=== PATIENT | male | born 1935 | race Caucasian/White ===

== ENCOUNTER 2021-04-12 20:20 | Emergency (ER) | payer OTHER, SELFPAY ==
--- NOTE | ~2021-04-12 | CT_ITS ---
EXAMINATION: CT ABDOMEN AND PELVIS WITHOUT CONTRAST CLINICAL INFORMATION: Intermittent epigastric pain COMPARISON: None TECHNIQUE: Multidetector volumetric imaging was performed from the superior aspect of the liver through the pubic symphysis. Sagittal and coronal reformatted images were obtained on the technologist's workstation. This CT examination was performed using dose optimization techniques as appropriate, variously including the following: *Automated exposure control *Adjustment of mA and/or kV according to patient size (this includes techniques or standardized protocols for targeted exams where dose is matched to indication/reason for exam; i.e. extremities or head) *Use of iterative reconstruction technique DLP: 543 mGy-cm FINDINGS: LUNG BASES: The visualized lung bases are unremarkable. LIVER, GALLBLADDER, AND BILIARY TREE: The liver is normal in size, shape, and attenuation. No focal hepatic lesion or biliary ductal dilatation is present. Incidental tiny granulomata left lobe. The gallbladder is unremarkable with no evidence of radiopaque gallstones, gallbladder wall thickening, or obvious pericholecystic inflammatory changes. PANCREAS: Unremarkable. SPLEEN: Unremarkable. ADRENAL GLANDS: Unremarkable. KIDNEYS AND URETERS: The kidneys are normal in size, shape, and attenuation. No hydronephrosis, hydroureter, or calculi seen. No perinephric stranding. Incidental 4 cm unilocular simple cyst right lower pole cortex. BLADDER: Unremarkable. GASTROINTESTINAL TRACT: Extensive diverticular disease especially sigmoid colon. No measurable acute inflammatory changes. No obstruction. No serosal abnormality. No small bowel abnormality. Moderate amount stool throughout the colon without evidence for stercoral colitis within the rectum. Cecal base is unremarkable. Terminal ileum normal. No gastric wall thickening. ABDOMINAL WALL: No significant hernia is appreciated. LYMPH NODES: Normal. VASCULAR: Unremarkable. PELVIC VISCERA: Unremarkable. OSSEOUS STRUCTURES: Unremarkable. CT/CT abdomen pelvis wo con IMPRESSION: Severe diverticulosis as well as stool retention without acute inflammatory changes or obstruction as above.
[2021-04-12 20:25] VITALS: BP 178/79; PULSE 78; RESP 18; TEMP 37; O2SAT 94; BMI 30.9
--- NOTE | 2021-04-12 20:51 | ECG_ITS ---
Test Reason : ABDOMINAL PAIN Blood Pressure : / mmHG Vent. Rate : 069 BPM Atrial Rate : 069 BPM P-R Int : 160 ms QRS Dur : 084 ms QT Int : 366 ms P-R-T Axes : 049 017 026 degrees QTc Int : 392 ms Sinus rhythm with blocked PAC Otherwise normal ECG No previous ECGs available Referred By: Ambar Clark Electronically Signed By:Avery Bell
--- NOTE | 2021-04-12 20:57 | ED.ABDPAIN ---
HPI - Abdominal Pain General Chief Complaint: Abdominal Pain Stated Complaint: abd pain Time Seen by Provider: 04/12/21 20:42 Source: patient Mode of arrival: ambulatory Limitations: no limitations History of Present Illness HPI narrative: Patient comes emergency room complaining of epigastric pain. Patient states earlier today after eating he had an episode of epigastric pain, lasting for approximately 2-3 hours, nonradiating. Patient states that this time his symptoms have resolved. Patient denies chest pain, no shortness of breath, no vomiting or diarrhea. MD elicited complaint: abdominal pain Related Data Previous Rx's Medication Instructions Recorded polyethylene glycol 3350 [Miralax] 17 g PO DAILY #119 g 04/13/21 Allergies Allergy/AdvReac Type Severity Reaction Status Date / Time No Known Allergies Allergy Verified 04/12/21 20:51 Review of Systems Review of Systems Constitutional : No Weight loss, No Fever, No Chills, No Night Sweats, No Fatigue, No Malaise ENT/Mouth : No Hearing loss, No Ear Pain, No Nasal Congestion, No Sinus Pain, No Hoarseness, No sore throat, No Rhinorrhea, No Swallowing Difficulty Eyes: No Eye Pain, No Swelling, No Redness, No Foreign Body, No Discharge, No Vision Changes Cardiovascular : No Chest Pain, No SOB, No Dyspnea on Exertion, No Orthopnea, No Edema, No Palpitations Respiratory : No Cough, No Sputum, No Wheezing, No Smoke Exposure, No Dyspnea Gastrointestinal : No Nausea, No Vomiting, No Diarrhea, No Constipation, complaining of epigastric pain, No Hematochezia, No Melena Genitourinary : no irregular bleeding, No Dysuria, No Urinary Frequency, No Hematuria, No Urinary Incontinence, No Urgency, No Flank Pain, No Urinary Flow Changes, No Hesitancy Musculoskeletal : No joint pain, No Myalgias, No Joint Swelling Skin : No Skin Lesions, No rash Neuro : No Weakness, No Numbness, No Paresthesias, No Loss of Consciousness, No Dizziness, No Headache Psych : No Anxiety/Panic, No Depression, No SI/HI/AH/VH, No Social Issues, Heme/Lymph: No Bruising, No Bleeding,No Lymphadenopathy Endocrine : No Polyuria, No Polydipsia, No Temperature Intolerance Physical Exam Vital Signs: Vital Signs: Last Vital Signs Temp 98.1 F 04/13/21 00:00 Pulse 67 04/13/21 00:00 Resp 16 04/13/21 00:00 BP 145/60 H 04/13/21 00:00 Pulse Ox 99 04/13/21 00:00 Body Mass Index 30.9 Appearance: Alert. Oriented X3. No acute distress. Eyes: Pupils equal, round and reactive to light. ENT: Pharynx normal. Neck: Normal inspection. Neck supple. No lymph nodes noted. No crepitus CVS: Normal heart rate and rhythm. Pulses normal. Normal S1 and S2 Respiratory: No respiratory distress. Breath sounds normal. No Wheezing. No rales Abdomen: Soft and nontender. No rigidity. No distention. good BS x4 Skin: Skin warm and dry. Normal skin color. Normal skin turgor. Extremities: No lower extremity edema. No Lacerations. No Rash Neuro: Oriented X 3. No motor deficit. No sensory deficit. Moving all extermities. No slurred speech. Course Course Course Narrative: Patient has intermittent epigastric pain. Patient received a GI cocktail and states that the pain nearly went away. Patient's troponin is 5.4, due to the intermittent pain that he is experiencing, we will repeat troponin at midnight. Patient agrees with plan. At this time, patient is asymptomatic Patient's CT scan is negative, patient does have significant constipation. Patient will be started on laxative. Patient does not have any abdominal pain, no chest pain, troponin 2. Is less than delta 50 MDM - Abdominal Pain Lab Data Result diagrams: 04/12/21 21:06 04/12/21 21:06 Labs: Lab Results 04/12/21 04/12/21 04/12/21 Range/Units 21:06 21:06 21:06 WBC 7.2 (4.8-10.8) X10*3/uL RBC 4.19 L (4.60-5.80) X10*6/uL Hgb 13.3 L (14.0-18.0) g/dl Hct 38.7 L (42-52) % MCV 92.4 (80-98) fL MCH 31.7 (27.0-33.0) pg MCHC 34.4 (31.0-36.0) g/dl RDW 12.0 (11.0-16.0) % Plt Count 207 (160-400) X10*3/uL MPV 10.3 (9.4-12.4) fL Immature Gran % (Auto) 0.8 H (0.0-0.4) % Neut % (Auto) 76.5 H (45-73) % Lymph % (Auto) 10.7 L (20-40) % [place] % (Auto) 8.9 (2-11) % Eos % (Auto) 3.0 (0-4) % Baso % (Auto) 0.1 (0-2) % Lymph # (Auto) 0.8 L (1.2-4.9) X10*3/uL [place] # (Auto) 0.6 (0.1-1.2) X10*3/uL Eos # (Auto) 0.2 (0.0-0.4) X10*3/uL Baso # (Auto) 0.0 (0.0-0.2) X10*3/uL Abs Immat Gran (auto) 0.06 H (0.00-0.03) X10*3/uL Absolute Neuts (auto) 5.5 (2.0-8.3) X10*3/uL Absolute Nucleated RBC 0.000 (0.0-0.012) X10*3/uL Nucleated RBC % (auto) 0.0 (0.0-0.2) /100WBC Sodium 142 (135-145) mmol/L Potassium 3.9 (3.3-5.1) mmol/L Chloride 109 H (96-108) mmol/L Carbon Dioxide 23 (22-29) mmol/L Anion Gap 14 (12-20) BUN 21 H (9-16) mg/dL Creatinine 0.92 (0.5-1.4) mg/dL Estim Creat Clear Calc 60.6 Estimated GFR > 60 Random Glucose 150 H (60-115) mg/dL Calcium 9.1 (8.4-10.2) mg/dL Total Bilirubin 0.7 (0.0-1.0) mg/dL Direct Bilirubin 0.2 (0.0-0.5) mg/dL AST 17 (5-37) U/L ALT 11 (0-40) U/L Alkaline Phosphatase 69 (39-117) U/L Troponin I High Sens 5.4 (<3.5-35.0) ng/L Total Protein 6.8 (6.5-8.0) g/dL Albumin 4.0 (3.5-5.0) g/dL Lipase 35 (8-78) U/L 04/13/21 Range/Units 00:06 WBC (4.8-10.8) X10*3/uL RBC (4.60-5.80) X10*6/uL Hgb (14.0-18.0) g/dl Hct (42-52) % MCV (80-98) fL MCH (27.0-33.0) pg MCHC (31.0-36.0) g/dl RDW (11.0-16.0) % Plt Count (160-400) X10*3/uL MPV (9.4-12.4) fL Immature Gran % (Auto) (0.0-0.4) % Neut % (Auto) (45-73) % Lymph % (Auto) (20-40) % [place] % (Auto) (2-11) % Eos % (Auto) (0-4) % Baso % (Auto) (0-2) % Lymph # (Auto) (1.2-4.9) X10*3/uL [place] # (Auto) (0.1-1.2) X10*3/uL Eos # (Auto) (0.0-0.4) X10*3/uL Baso # (Auto) (0.0-0.2) X10*3/uL Abs Immat Gran (auto) (0.00-0.03) X10*3/uL Absolute Neuts (auto) (2.0-8.3) X10*3/uL Absolute Nucleated RBC (0.0-0.012) X10*3/uL Nucleated RBC % (auto) (0.0-0.2) /100WBC Sodium (135-145) mmol/L Potassium (3.3-5.1) mmol/L Chloride (96-108) mmol/L Carbon Dioxide (22-29) mmol/L Anion Gap (12-20) BUN (9-16) mg/dL Creatinine (0.5-1.4) mg/dL Estim Creat Clear Calc Estimated GFR Random Glucose (60-115) mg/dL Calcium (8.4-10.2) mg/dL Total Bilirubin (0.0-1.0) mg/dL Direct Bilirubin (0.0-0.5) mg/dL AST (5-37) U/L ALT (0-40) U/L Alkaline Phosphatase (39-117) U/L Troponin I High Sens 7.1 (<3.5-35.0) ng/L Total Protein (6.5-8.0) g/dL Albumin (3.5-5.0) g/dL Lipase (8-78) U/L Imaging Data CT scan - abdomen: Radiologist's impression: FINDINGS: LUNG BASES: The visualized lung bases are unremarkable. LIVER, GALLBLADDER, AND BILIARY TREE: The liver is normal in size, shape, and attenuation. No focal hepatic lesion or biliary ductal dilatation is present. Incidental tiny granulomata left lobe. The gallbladder is unremarkable with no evidence of radiopaque gallstones, gallbladder wall thickening, or obvious pericholecystic inflammatory changes. PANCREAS: Unremarkable. SPLEEN: Unremarkable. ADRENAL GLANDS: Unremarkable. KIDNEYS AND URETERS: The kidneys are normal in size, shape, and attenuation. No hydronephrosis, hydroureter, or calculi seen. No perinephric stranding. Incidental 4 cm unilocular simple cyst right lower pole cortex. BLADDER: Unremarkable. GASTROINTESTINAL TRACT: Extensive diverticular disease especially sigmoid colon. No measurable acute inflammatory changes. No obstruction. No serosal abnormality. No small bowel abnormality. Moderate amount stool throughout the colon without evidence for stercoral colitis within the rectum. Cecal base is unremarkable. Terminal ileum normal. No gastric wall thickening. ABDOMINAL WALL: No significant hernia is appreciated. LYMPH NODES: Normal. VASCULAR: Unremarkable. PELVIC VISCERA: Unremarkable. OSSEOUS STRUCTURES: Unremarkable. CT/CT abdomen pelvis wo con IMPRESSION: Severe diverticulosis as well as stool retention without acute inflammatory changes or obstruction as above. ECG Data Attestation: I personally reviewed and interpreted this ECG as follows: (Sinus rhythm, marked sinus arrhythmia, heart rate 69, no ST segment depression or elevation, no T-wave inversion, QTC 392) Discharge Plan Discharge Clinical Impression: Abdominal pain Qualifiers: Abdominal location: epigastric Qualified Code(s): R10.13 - Epigastric pain Patient Disposition: Home, Self-Care Instructions: Abdominal Pain (ED) Additional Instructions: Please follow-up with your primary care physician tomorrow. If you have any worsening or new symptoms, please return to the emergency room or call 911 Prescriptions: New polyethylene glycol 3350 [Miralax] 17 gram/dose powder 17 g PO DAILY Qty: 119 RF: 0 PMFSH Past Medical History Medical History (Updated 04/13/21 @ 00:42 by Ambar Clark MD) No known health problems Social History Social History Smoked in Last 30 Days: No Advance Directives: No Advance Directives Information Provided: No
[2021-04-12 21:11] LABS: MANUAL DIFF FLAG NO
[2021-04-12 21:13] LABS: Basophils Percent Auto 0.1 % (0-2); Eosinophils Absolute Auto 0.2 X10*3/uL (0.0-0.4); Hematocrit 38.7 % (42-52); Hemoglobin 13.3 g/dl (14.0-18.0); Imm Gran Abs Auto 0.06 X10*3/uL (0.00-0.03); Imm Gran Pct Auto 0.8 % (0.0-0.4); Lymphocytes Absolute Auto 0.8 X10*3/uL (1.2-4.9); Lymphocytes Percent Auto 10.7 % (20-40); Mean Corpuscular HGB Conc 34.4 g/dl (31.0-36.0); Mean Corpuscular Hemoglobin 31.7 pg (27.0-33.0); Mean Corpuscular Volume 92.4 fL (80-98); Mean Platelet Volume 10.3 fL (9.4-12.4); Monocytes Absolute Auto 0.6 X10*3/uL (0.1-1.2); Monocytes Percent Auto 8.9 % (2-11); Neutrophils Absolute Auto 5.5 X10*3/uL (2.0-8.3); Neutrophils Percent Auto 76.5 % (45-73); Platelet Count 207 X10*3/uL (160-400); Red Blood Count 4.19 X10*6/uL (4.60-5.80); White Blood Count 7.2 X10*3/uL (4.8-10.8)
[2021-04-12 21:48] LABS: Alanine Aminotransferase 11 U/L (0-40); Alkaline Phosphatase 69 U/L (39-117); Anion Gap 14 (12-20); Aspartate Amino Transferase 17 U/L (5-37); Bilirubin Direct 0.2 mg/dL (0.0-0.5); Bilirubin Total 0.7 mg/dL (0.0-1.0); Blood Urea Nitrogen 21 mg/dL (9-16); Calcium 9.1 mg/dL (8.4-10.2); Carbon Dioxide 23 mmol/L (22-29); Chloride 109 mmol/L (96-108); Creatinine Clr Calc Pharmacy 60.6; Estimated Glomerular Filt Rate > 60; Glucose Random 150 mg/dL (60-115); Potassium 3.9 mmol/L (3.3-5.1); Sodium 142 mmol/L (135-145); Total Protein 6.8 g/dL (6.5-8.0)
[2021-04-12 21:51] LABS: Troponin-I High Sensitivity 5.4 ng/L (<3.5-35.0)
[2021-04-12] MEDS: Lidocaine HCl Viscous 2 % 15 ML SOLUTION MUCOUS MEM (22:05)
[2021-04-12] MEDS: Magnesium Hydrox/Alum Hydrox 30 ML ORAL.SUSP PO (22:05)
[2021-04-12 22:38] LABS: Lipase 35 U/L (8-78)
[2021-04-13] VITALS: BP 145/60; PULSE 67; RESP 16; TEMP 36.7; O2SAT 99
[2021-04-13 00:37] LABS: Troponin-I High Sensitivity 7.1 ng/L (<3.5-35.0)
== END 2021-04-13 01:18 | disposition home or self-care (01) ==
PROVIDERS: Emergency Provider Emergency Medicine
DX: R10.13 Epigastric pain (principal); K59.00 Constipation, unspecified
CPT/HCPCS: 36415; 74176; 80048; 80076; 83690; 84484; 85025; 93005; 99284

== ENCOUNTER 2022-05-29 03:37 | Emergency (ER) | payer OTHER, SELFPAY ==
[2022-05-29] VITALS (8 sets, daily range): BP systolic 125–156; BP diastolic 65–92; PULSE 81–98; RESP 16–20; TEMP 36.7–37; O2SAT 94–98; BMI 25.6
--- NOTE | ~2022-05-29 | US_ITS ---
EXAMINATION: US ABDOMEN LIMITED CLINICAL INFORMATION: Gallstones.. COMPARISON: None TECHNIQUE: Real-time imaging of the right upper quadrant abdominal viscera. FINDINGS: Gallbladder: There are multiple radiopaque gallstones without wall thickening or donald gallbladder fluid collection. The gallbladder wall thickness is 0.2 cm. US/US abdomen limited IMPRESSION: Cholelithiasis without wall thickening.
--- NOTE | ~2022-05-29 | CT_ITS ---
EXAMINATION: CT ABDOMEN AND PELVIS WITHOUT CONTRAST CLINICAL INFORMATION: Right lower quadrant pain COMPARISON: 04/12/2021 TECHNIQUE: Multidetector volumetric imaging was performed from the superior aspect of the liver through the pubic symphysis. Sagittal and coronal reformatted images were obtained on the technologist's workstation. This CT examination was performed using dose optimization techniques as appropriate, variously including the following: *Automated exposure control *Adjustment of mA and/or kV according to patient size (this includes techniques or standardized protocols for targeted exams where dose is matched to indication/reason for exam; i.e. extremities or head) *Use of iterative reconstruction technique DLP: 664 mGy-cm FINDINGS: LUNG BASES: Dependent consolidation in the right lower lobe. Coronary artery calcification. LIVER, GALLBLADDER, AND BILIARY TREE: The liver is normal in size, shape, and attenuation. No focal hepatic lesion or biliary ductal dilatation is present. Small stones in the gallbladder lumen. No wall thickening or adjacent inflammation. PANCREAS: Unremarkable. SPLEEN: Unremarkable. ADRENAL GLANDS: Unremarkable. KIDNEYS AND URETERS: The kidneys are normal in size, shape, and attenuation. No hydronephrosis, hydroureter, or calculi seen. No perinephric stranding. Simple cyst at the lower pole of the right kidney. No follow-up imaging recommended. BLADDER: Unremarkable. GASTROINTESTINAL TRACT: The stomach is unremarkable. Normal caliber small bowel. No obstruction. Colonic diverticulosis without diverticulitis. Normal size appendix. Small appendicoliths. No inflammation. ABDOMINAL WALL: No significant hernia is appreciated. LYMPH NODES: Normal. VASCULAR: Normal caliber aorta with moderate atherosclerotic calcification. PELVIC VISCERA: The prostate and seminal vesicles are unremarkable. OSSEOUS STRUCTURES: No acute or suspicious osseous abnormality. Mild degenerative change throughout the spine. Moderate degenerative changes in the hips. CT/CT abdomen pelvis wo con IMPRESSION: No acute finding in the abdomen or pelvis. No inflammation. Normal appendix. Cholelithiasis. No inflammation to suggest acute cholecystitis. Consolidation dependently in the right lower lobe could be atelectasis or pneumonia. Fleischner guidelines were followed.
--- NOTE | ~2022-05-29 | XR_ITS ---
EXAMINATION: XR CHEST CLINICAL INFORMATION: Fever. COMPARISON: Chest done on 06/02/2022. TECHNIQUE: 2 views of the chest were obtained. FINDINGS: No significant abnormality is noted involving the heart, lungs, mediastinum, bony thorax or soft tissues. XR/XR chest 2V IMPRESSION: Unremarkable examination.
--- NOTE | ~2022-05-29 | XR_ITS ---
EXAMINATION: XR CHEST CLINICAL INFORMATION: Weakness COMPARISON: None TECHNIQUE: Frontal view of the chest was obtained. FINDINGS: Cardiac leads overlie the chest. The lungs are well expanded. There is no focal consolidation, edema, or effusion. No pneumothorax. The cardiomediastinal silhouette is within normal limits. No acute osseous abnormality. XR/XR chest 1V IMPRESSION: No acute pulmonary finding.
--- NOTE | 2022-05-29 03:47 | ECG_ITS ---
Test Reason : ABDOMINAL PAIN Blood Pressure : / mmHG Vent. Rate : 106 BPM Atrial Rate : 000 BPM P-R Int : 000 ms QRS Dur : 074 ms QT Int : 358 ms P-R-T Axes : 000 019 032 degrees QTc Int : 475 ms Atrial fibrillation with rapid ventricular response Abnormal ECG When compared with ECG of 12-APR-2021 20:57, Atrial fibrillation has replaced Sinus rhythm Vent. rate has increased BY 37 BPM Referred By: Yahaira Chao Electronically Signed By:VLAD BELL
--- NOTE | 2022-05-29 03:54 | ED.ABDPAIN ---
HPI - Abdominal Pain General Chief Complaint: Abdominal Pain Stated Complaint: abdominal pain Time Seen by Provider: 05/29/22 03:40 Source: patient Mode of arrival: EMS Limitations: altered mental status (dementia) History of Present Illness HPI narrative: 86 yo male with hx of HLD, HTN, dementia, PAF On eliquis comes from home EMS notes they were called for abdominal pain but here the patient has no complaints. EMS also notes that the states to them they came back from [place] recently as they have family here. His dementia is worsening and if he needs placement in the future it will be here. MD elicited complaint: abdominal pain Pertinent past history: constipation Onset (ago): unknown Pain Consistency: now resolved Location: none Severity: mild Radiation: none Exacerbating factors: nothing Relieving factors: nothing Associated symptoms: denies other symptoms Related Data Previous Rx's Medication Instructions Recorded polyethylene glycol 3350 17 17 g PO DAILY #119 grams 04/13/21 gram/dose oral powder (Miralax) azithromycin 250 mg tablet 250 mg PO DAILY 4 days #4 tabs 05/29/22 cefuroxime axetil 500 mg tablet 500 mg PO BID 7 days #14 tabs 05/29/22 Allergies Allergy/AdvReac Type Severity Reaction Status Date / Time No Known Allergies Allergy Verified 04/12/21 20:51 Review of Systems Review of Systems ROS unable to be obtained due to dementia [facility] Past Medical History Medical History Afib Anxiety Dementia HTN (hypertension) Hyperlipidemia Social History Social History (Updated 05/29/22 @ 03:55 by Yahaira Chao DO) Patient Tobacco Use Status: Tobacco use Unknown Advance Directives: No Advance Directives Information Provided: Yes Physical Exam ED Vital Signs: Vital Signs - 24 hr 05/29/22 03:51 05/29/22 04:40 05/29/22 06:00 Temperature 98.1 F Pulse Rate 94 91 98 Respiratory Rate 16 20 20 Blood Pressure 125/65 127/65 Pulse Oximetry 94 95 95 Oxygen Delivery Method Room Air Room Air Room Air BMI result Body Mass Index 25.6 Appearance: Alert. Oriented X2 (confused on time). No acute distress. Eyes: Pupils equal, round and reactive to light. ENT: Pharynx normal. Neck: Normal inspection. Neck supple. CVS: irregular heart rate and rhythm. Pulses normal. Respiratory: No respiratory distress. Breath sounds normal. Abdomen: Soft and nontender. does not grimace to palpation Skin: Skin warm and dry. Normal skin color. Normal skin turgor. Extremities: No lower extremity edema. Neuro: Oriented X 2 (confused on time). No motor deficit. No sensory deficit. Course Course Course Narrative: CXR negative but consolidation seen on CT scan of RLL - mild WBC count, afebrile, neg lactic acid could be managed as outpatient cannot get a hold of and no voicemail is set up - signed out to Dr. Vogt pending CM to help with DC MDM - Abdominal Pain MDM Narrative Medical decision making narrative: 86 yo male with hx of HLD, HTN, dementia, PAF On eliquis - EMS called for abdominal pain at home here he denies pain but he is unreliable historian will obtain labs, UA, EKG, CT scan for renal colic/appendicitis/SBO. Dispo per results and findings. Lab Data Result diagrams: 05/29/22 03:57 05/29/22 03:57 Labs: Lab Results 05/29/22 05/29/22 05/29/22 Range/Units 03:57 03:57 03:57 WBC 15.0 H (4.8-10.8) X10*3/uL RBC 3.20 L (4.60-5.80) X10*6/uL Hgb 10.1 L (14.0-18.0) g/dl Hct 31.2 L (42.0-52.0) % MCV 97.5 (80.0-98.0) fL MCH 31.6 (27.0-33.0) pg MCHC 32.4 (31.0-36.0) g/dl RDW 18.6 H (11.0-16.0) % Plt Count 411 H (160-400) X10*3/uL MPV 9.8 (9.4-12.4) fL Immature Gran % (Auto) 1.9 H (0.0-0.4) % Neut % (Auto) 82.3 H (45-73) % Lymph % (Auto) 6.4 L (20-40) % [place] % (Auto) 7.2 (2-11) % Eos % (Auto) 1.9 (0-4) % Baso % (Auto) 0.3 (0-2) % Lymph # (Auto) 1.0 L (1.2-4.9) X10*3/uL [place] # (Auto) 1.1 (0.1-1.2) X10*3/uL Eos # (Auto) 0.3 (0.0-0.4) X10*3/uL Baso # (Auto) 0.1 (0.0-0.2) X10*3/uL Abs Immat Gran (auto) 0.28 H (0.00-0.03) X10*3/uL Absolute Neuts (auto) 12.3 H (2.0-8.3) x10*3/uL Absolute Nucleated RBC 0.000 (0.0-0.012) X10*3/uL Nucleated RBC % (auto) 0.0 (0.0-0.2) /100WBC Sodium 140 (135-145) mmol/L Potassium 3.9 (3.3-5.1) mmol/L Chloride 101 (96-108) mmol/L Carbon Dioxide 25 (22-29) mmol/L Anion Gap 18 (12-20) BUN 21 H (9-16) mg/dL Creatinine 1.04 (0.5-1.4) mg/dL Estim Creat Clear Calc 49.3 Estimated GFR > 60 Random Glucose 126 H (60-115) mg/dL Lactic Acid (0.5-2.0) mmol/L Calcium 9.1 (8.4-10.2) mg/dL Magnesium 1.8 (1.6-2.6) mg/dL Total Bilirubin 1.2 H (0.0-1.0) mg/dL Direct Bilirubin 0.5 (0.0-0.5) mg/dL AST 14 (5-37) U/L ALT 11 (0-40) U/L Alkaline Phosphatase 70 (39-117) U/L Troponin I High Sens 5.2 (<3.5-35.0) ng/L Total Protein 6.8 (6.5-8.0) g/dL Albumin 3.2 L (3.5-5.0) g/dL Lipase 26 (8-78) U/L Urine Color Urine Appearance Urine pH (5.0-8.0) Ur Specific [place] (1.005-1.025) Urine Protein (NEG-TRACE) MG/DL Urine Glucose (UA) (NEG) MG/DL Urine Ketones (NEG) MG/DL Urine Blood (NEG) Urine Nitrite (NEG) Ur Leukocyte Esterase (NEG) COVID-19 (IMTIAZ) (Negative) COVID-19 Clin Com 05/29/22 05/29/22 05/29/22 Range/Units 03:57 04:19 05:18 WBC (4.8-10.8) X10*3/uL RBC (4.60-5.80) X10*6/uL Hgb (14.0-18.0) g/dl Hct (42.0-52.0) % MCV (80.0-98.0) fL MCH (27.0-33.0) pg MCHC (31.0-36.0) g/dl RDW (11.0-16.0) % Plt Count (160-400) X10*3/uL MPV (9.4-12.4) fL Immature Gran % (Auto) (0.0-0.4) % Neut % (Auto) (45-73) % Lymph % (Auto) (20-40) % [place] % (Auto) (2-11) % Eos % (Auto) (0-4) % Baso % (Auto) (0-2) % Lymph # (Auto) (1.2-4.9) X10*3/uL [place] # (Auto) (0.1-1.2) X10*3/uL Eos # (Auto) (0.0-0.4) X10*3/uL Baso # (Auto) (0.0-0.2) X10*3/uL Abs Immat Gran (auto) (0.00-0.03) X10*3/uL Absolute Neuts (auto) (2.0-8.3) x10*3/uL Absolute Nucleated RBC (0.0-0.012) X10*3/uL Nucleated RBC % (auto) (0.0-0.2) /100WBC Sodium (135-145) mmol/L Potassium (3.3-5.1) mmol/L Chloride (96-108) mmol/L Carbon Dioxide (22-29) mmol/L Anion Gap (12-20) BUN (9-16) mg/dL Creatinine (0.5-1.4) mg/dL Estim Creat Clear Calc Estimated GFR Random Glucose (60-115) mg/dL Lactic Acid 1.0 (0.5-2.0) mmol/L Calcium (8.4-10.2) mg/dL Magnesium (1.6-2.6) mg/dL Total Bilirubin (0.0-1.0) mg/dL Direct Bilirubin (0.0-0.5) mg/dL AST (5-37) U/L ALT (0-40) U/L Alkaline Phosphatase (39-117) U/L Troponin I High Sens (<3.5-35.0) ng/L Total Protein (6.5-8.0) g/dL Albumin (3.5-5.0) g/dL Lipase (8-78) U/L Urine Color YELLOW Urine Appearance CLEAR Urine pH 7.5 (5.0-8.0) Ur Specific [place] 1.010 (1.005-1.025) Urine Protein NEG (NEG-TRACE) MG/DL Urine Glucose (UA) NEG (NEG) MG/DL Urine Ketones 15 (NEG) MG/DL Urine Blood NEG (NEG) Urine Nitrite NEG (NEG) Ur Leukocyte Esterase NEG (NEG) COVID-19 (IMTIAZ) Negative (Negative) COVID-19 Clin Com See Note ECG Data Attestation: I personally reviewed and interpreted this ECG as follows: ECG interpretation date: 05/29/22 ECG interpretation time: 03:56 Interpretation: Rate: 106 Rhythm: afib [place]: normal Normal QRS complex. ST T wave : nonspecific no [place]SE[place] qTC: normal prior studies: no acute ischemia, no priors The study has been interpreted contemporaneously by me. . Discharge Plan Discharge Clinical Impression: Gallstones Pneumonia Qualifiers: Pneumonia type: due to unspecified organism Laterality: right Lung location: lower lobe of lung Qualified Code(s): J18.9 - Pneumonia, unspecified organism Leukocytosis Qualifiers: Leukocytosis type: unspecified Qualified Code(s): D72.829 - Elevated white blood cell count, unspecified Patient Disposition: Still a Patient Instructions: Gallstones (ED), Leukocytosis (ED), Pneumonia (ED) Additional Instructions: return to ED for any worsening symptoms or concerns start antibiotics on 05/30 given IV doses in the Emergency department follow up with primary care doctor in 5 days Prescriptions: New cefuroxime axetil 500 mg tablet 500 mg PO BID 7 Days Qty: 14 0RF azithromycin 250 mg tablet 250 mg PO DAILY 4 Days Qty: 4 0RF Rx Instructions: start on day 2 of therapy No Action polyethylene glycol 3350 [Miralax] 17 gram/dose powder 17 g PO DAILY Qty: 119 0RF
--- NOTE | 2022-05-29 03:58 | PC.NURSE ---
pt alert to self and location. pt has confusion at baseline per EMS Report. EKg and labs completed. Pt placed on bedside monitor. Provider in to see pt.
[2022-05-29 04:02] LABS: MANUAL DIFF FLAG NO
[2022-05-29 04:03] LABS: Basophils Absolute Auto 0.1 X10*3/uL (0.0-0.2); Basophils Percent Auto 0.3 % (0-2); Eosinophils Absolute Auto 0.3 X10*3/uL (0.0-0.4); Eosinophils Percent Auto 1.9 % (0-4); Hematocrit 31.2 % (42.0-52.0); Hemoglobin 10.1 g/dl (14.0-18.0); Imm Gran Abs Auto 0.28 X10*3/uL (0.00-0.03); Imm Gran Pct Auto 1.9 % (0.0-0.4); Lymphocytes Percent Auto 6.4 % (20-40); Mean Corpuscular HGB Conc 32.4 g/dl (31.0-36.0); Mean Corpuscular Hemoglobin 31.6 pg (27.0-33.0); Mean Corpuscular Volume 97.5 fL (80.0-98.0); Mean Platelet Volume 9.8 fL (9.4-12.4); Monocytes Absolute Auto 1.1 X10*3/uL (0.1-1.2); Monocytes Percent Auto 7.2 % (2-11); Neutrophils Absolute Auto 12.3 x10*3/uL (2.0-8.3); Neutrophils Percent Auto 82.3 % (45-73); Platelet Count 411 X10*3/uL (160-400); Red Cell Distribution Width 18.6 % (11.0-16.0)
[2022-05-29 04:23] LABS: Alanine Aminotransferase 11 U/L (0-40); Albumin Level 3.2 g/dL (3.5-5.0); Alkaline Phosphatase 70 U/L (39-117); Anion Gap 18 (12-20); Aspartate Amino Transferase 14 U/L (5-37); Bilirubin Direct 0.5 mg/dL (0.0-0.5); Bilirubin Total 1.2 mg/dL (0.0-1.0); Blood Urea Nitrogen 21 mg/dL (9-16); COVID-19 Test Negative (Negative); Calcium 9.1 mg/dL (8.4-10.2); Carbon Dioxide 25 mmol/L (22-29); Chloride 101 mmol/L (96-108); Creatinine Clr Calc Pharmacy 49.3; Estimated Glomerular Filt Rate > 60; Glucose Random 126 mg/dL (60-115); Lipase 26 U/L (8-78); Magnesium 1.8 mg/dL (1.6-2.6); Potassium 3.9 mmol/L (3.3-5.1); Sodium 140 mmol/L (135-145); Total Protein 6.8 g/dL (6.5-8.0)
[2022-05-29 04:25] LABS: Troponin-I High Sensitivity 5.2 ng/L (<3.5-35.0)
[2022-05-29] MEDS: cefTRIAXone sodium 1 GM in 0.9 % Sodium Chloride 50 ML IV (04:40)
[2022-05-29 05:24] LABS: Appearance Urine CLEAR; Color Urine YELLOW; Glucose Urine UA NEG (NEG); Leukocyte Esterase Urine NEG (NEG); Nitrite Urine NEG (NEG); PH 7.5 (5.0-8.0); Urine Blood NEG (NEG); Urine Ketones 15 MG/DL (NEG); Urine Protein NEG (NEG-TRACE)
--- NOTE | 2022-05-29 05:56 | PC.NURSE ---
Called to discuss plan of care, no answer at this time will report to provider.
[2022-05-29] MEDS: Azithromycin 500 MG in 0.9 % Sodium Chloride 250 ML 125 MG IV (06:16)
--- NOTE | 2022-05-29 06:34 | PC.NURSE ---
pt found to have ripped both IVs out and shelter monitor leads, new IV placed by this RN, pt leads re-attached, all safety measures maintained.
--- NOTE | 2022-05-29 09:02 | PC.NURSE ---
SPOKE WITH , SHE WOULD LIKE PATIENT TO GO TO PLACEMENT IT IS GETTING HARD FOR HER TO CARE FOR AT HOME. PROVIDER AWARE
--- NOTE | 2022-05-29 09:43 | MHC.CM.ED ---
CALL TO [facility] ([phone]) NO ANSWER AND HAS NOT SET UP VOICEMAIL CAPABILITY. CM ATTEMPTING TO SECURE A BED CURRENT REFERRALS TO [facility] WILL NEED COVID VAX STATUS AND HCP
--- NOTE | 2022-05-29 11:05 | PHA.MEDREC ---
Addendum entered by Shara Gonzalez RPh 05/30/22 12:18: No claim history; came in with med list from pharmacy in [place] ([facility]). reviewed med rec done by Jillian Gonzalez Original Note: Pharmacy Consult ? Medication Reconciliation Pharmacy has completed the medication reconciliation.
--- NOTE | 2022-05-29 12:39 | MHC.CM.PN ---
HCP OBTAINED. PATIENT IS COVID VAX X 3 WITH MODERNA SERIES (UPLOADED INTO [email or web address]) WOULD LIKE [facility]; HOWEVER FACILITY WOULD NEED CONTRACTED DENIALS. [facility] ARE UNABLE TO OFFER. [facility] IS WAITING TO SEE HOW PATIENT DOES OVERNIGHT. DOES NOT YET HAVE A HOME PHONE, COUPLE JUST ARRIVED FridayMAY 27 TO THE NEW HOME IN [place]. SHE DOES NOT HAVE VOICEMAIL SET UP ON HER CELL PHONE, NOR DOES SHE WANT TO.
--- NOTE | 2022-05-29 17:28 | MHC.CM.ED ---
CM just received word that [facility] will not offer a bed secondary to behaviors x 4 weeks. They spoke with , Albina, who was shocked about cost of LTC. Will have to sell condo . PT is recommending [facility] not [facility]. [facility] are out of contract with [facility]. Request sent to [facility] to see if they can offer. CM to follow for d/c needs.
[2022-05-29] MEDS: OLANZapine ODT 10 MG TAB.RAPDIS TRANSLINGU (20:48)
--- NOTE | 2022-05-29 20:50 | PC.NURSE ---
Pt medicated with 10mg PO zyprexa by request for medication to assist with sleeping and manage anxiety . Pt also given bed time snack. consumed 100%
[2022-05-30] VITALS (9 sets, daily range): BP systolic 134–166; BP diastolic 57–99; PULSE 90–130; RESP 13–20; TEMP 36.8; O2SAT 96–98
[2022-05-30] MEDS: Azithromycin 250 MG TABLET PO (07:38)
--- NOTE | 2022-05-30 14:32 | PC.NURSE ---
pt attempting to jump out of bed. multiiple re-attempts to reposition pt. DARRIUS camera placed on pt
[2022-05-30] MEDS: Atorvastatin Calcium 40 MG TABLET PO (14:35)
[2022-05-30] MEDS: Omeprazole 20 MG CAPSULE.DR PO (14:35)
[2022-05-30] MEDS: Escitalopram Oxalate 10 MG TABLET PO (14:35)
--- NOTE | 2022-05-30 16:55 | PC.NURSE ---
PHONE NUMBER ([email or web address])
--- NOTE | 2022-05-30 17:18 | MHC.CM.ED ---
Addendum entered by Isi Roa 05/31/22 12:53: No auth yet. at bedside. Aware. Will continue to check for auth. Hopefully this afternoon. CM to follow for d/c needs. Original Note: Albina at bedside. is aware that the insurance company, [employer], has not yet authorized payment. CM informed Albina that [facility] can take up to 48 hours to authorize STR. aware that insurance will pay for STR, but she will need to private pay for LTC. Encouraged to speak with social welfare research worker at facility regarding LTC. Explained that patient should not return to ED, but should transition to LTC from facility, whether she chooses [facility] or another facility. states they are so expensive. CM explained agreed and did let know that it depends what facilities have a bed, not just where she wants him to go. Explained that if she likes [facility], she can transition him there, as he is already there. Again encouraged to speak with social welfare research worker at the facility. CM to follow for d/c needs.
[2022-05-30] MEDS: Melatonin 3 MG TABLET 9 MG PO (20:26)
[2022-05-31] MEDS: Azithromycin 250 MG TABLET PO (06:13)
[2022-05-31] MEDS: Omeprazole 20 MG CAPSULE.DR PO (06:13)
[2022-05-31 06:17] VITALS: BP 154/84; PULSE 98; RESP 18; O2SAT 96
[2022-05-31] MEDS: polyethylene glycoL 3350 17 GM POWD.PACK PO (10:38)
[2022-05-31] MEDS: Escitalopram Oxalate 10 MG TABLET PO (10:45)
[2022-05-31] MEDS: Atorvastatin Calcium 40 MG TABLET PO (10:45)
--- NOTE | 2022-05-31 16:38 | MHC.CM.ED ---
No auth yet at 1630. Do not believe [employer] works over weekend. Expect auth on Friday at this point. CM to follow for d/c needs.
--- NOTE | 2022-05-31 16:41 | MHC.CM.ED ---
No auth yet. Will touch base in the morning. CM to follow for d/c needs.
[2022-05-31] MEDS: OLANZapine 10 MG VIAL IM (17:45)
[2022-05-31 18:00] VITALS: BP 149/68; PULSE 100; RESP 18; O2SAT 96
[2022-05-31 18:15] VITALS: BP 146/73; PULSE 108; RESP 16; O2SAT 98
[2022-05-31 18:30] VITALS: BP 142/66; PULSE 105; RESP 16; O2SAT 97
[2022-05-31] MEDS: Melatonin 3 MG TABLET 9 MG PO (22:41)
[2022-06-01 02:05] VITALS: BP 130/63; PULSE 100; RESP 16; O2SAT 98
--- NOTE | 2022-06-01 09:31 | MHC.CM.ED ---
Pt remains holding in the ED for STR placement. [facility] has offered but will need [place] authorization. Per Lindsey Guzman, admissions liasion, no auth as of this note. CM to revisit later today however, [employer] typically does not give auth on the weekend and pt may need to board until 06/03. Updated pt and his spouse - CM to follow.
[2022-06-01] MEDS: Azithromycin 250 MG TABLET PO (09:32)
[2022-06-01] MEDS: polyethylene glycoL 3350 17 GM POWD.PACK PO (09:33)
[2022-06-01] MEDS: Escitalopram Oxalate 10 MG TABLET PO (09:34)
[2022-06-01] MEDS: Atorvastatin Calcium 40 MG TABLET PO (09:34)
[2022-06-01] MEDS: Omeprazole 20 MG CAPSULE.DR PO (09:35)
[2022-06-01 09:36] VITALS: BP 134/79; PULSE 111; RESP 18; TEMP 36.4; O2SAT 97
--- NOTE | 2022-06-01 09:39 | PC.NURSE ---
Pt repositioned in the bed. Pads and sheets clean and dry at this time.
--- NOTE | 2022-06-01 12:19 | PC.NURSE ---
pt put on the bed edwards states he needs to move his bowels, when taken of the bed edwards no bowel movement at this time, pt cleaned up and repositioned, pt reports no pain but when moving around pt moaning and noticing facial grimacing
[2022-06-01 14:00] VITALS: BP 142/73; PULSE 97; RESP 18; O2SAT 95
--- NOTE | 2022-06-01 15:50 | PC.NURSE ---
this nurse took report from norma, patient awake alert to baseline, no c/o pain/discomfort, family at bedside, vss, call lara within reach, will continue to monitor.
[2022-06-01] MEDS: Melatonin 3 MG TABLET 9 MG PO (22:24)
[2022-06-01 22:35] VITALS: BP 126/74; PULSE 96; RESP 16; TEMP 36.1; O2SAT 97
--- NOTE | 2022-06-02 02:19 | PC.NURSE ---
PATIENT WAS INC OF URINE AND HAD A LARGE BOWEL MOVEMENT ,CARE GIVING ,BEDDING CHANGE I GIVE PATIENT 120 ML CRANBERRY JUICE TO DRINK .
[2022-06-02 05:44] VITALS: BP 133/60; PULSE 102; RESP 16; TEMP 36.9; O2SAT 97
[2022-06-02 06:05] VITALS: BP 121/45; PULSE 95; RESP 16; TEMP 39.3; O2SAT 100
--- NOTE | 2022-06-02 06:07 | PC.NURSE ---
patient saini out put was 200 ml ,patient had a large bowel movement ,bed bath given ,patient has a temp of 102.8 .rn is aware attempt to give patient a drink ,but refused closing his lips down ,rn is also aware .
--- NOTE | 2022-06-02 06:35 | PC.NURSE ---
PATIENT WAS INC OF A SECOND LARGE BOWEL MOVEMENT ,AND LARGE AMOUNT OF URINE ,CARE GIVEN AND PATIENT DRANK 120 ML CRANBERRY JUICE .
[2022-06-02 08:19] LABS: MANUAL DIFF FLAG NO
[2022-06-02 08:22] LABS: Basophils Percent Auto 0.3 % (0-2); Eosinophils Absolute Auto 0.3 X10*3/uL (0.0-0.4); Eosinophils Percent Auto 2.6 % (0-4); Hemoglobin 10.3 g/dl (14.0-18.0); Imm Gran Abs Auto 0.06 X10*3/uL (0.00-0.03); Imm Gran Pct Auto 0.5 % (0.0-0.4); Lymphocytes Absolute Auto 1.1 X10*3/uL (1.2-4.9); Lymphocytes Percent Auto 10.2 % (20-40); Mean Corpuscular HGB Conc 32.2 g/dl (31.0-36.0); Mean Corpuscular Hemoglobin 31.9 pg (27.0-33.0); Mean Corpuscular Volume 99.1 fL (80.0-98.0); Mean Platelet Volume 9.7 fL (9.4-12.4); Monocytes Absolute Auto 0.8 X10*3/uL (0.1-1.2); Monocytes Percent Auto 7.1 % (2-11); Neutrophils Absolute Auto 8.7 x10*3/uL (2.0-8.3); Neutrophils Percent Auto 79.3 % (45-73); Platelet Count 375 X10*3/uL (160-400); Red Blood Count 3.23 X10*6/uL (4.60-5.80); Red Cell Distribution Width 18.1 % (11.0-16.0); White Blood Count 10.9 X10*3/uL (4.8-10.8)
[2022-06-02 08:40] LABS: COVID-19 Test Negative (Negative)
[2022-06-02 08:42] LABS: Lactic Acid 1.2 mmol/L (0.5-2.0)
[2022-06-02 08:46] LABS: Alanine Aminotransferase 9 U/L (0-40); Albumin Level 3.1 g/dL (3.5-5.0); Alkaline Phosphatase 69 U/L (39-117); Anion Gap 17 (12-20); Aspartate Amino Transferase 11 U/L (5-37); Bilirubin Direct 0.4 mg/dL (0.0-0.5); Bilirubin Total 0.8 mg/dL (0.0-1.0); Blood Urea Nitrogen 20 mg/dL (9-16); Calcium 9.1 mg/dL (8.4-10.2); Carbon Dioxide 26 mmol/L (22-29); Chloride 102 mmol/L (96-108); Creatinine Clr Calc Pharmacy 56.3; Estimated Glomerular Filt Rate > 60; Glucose Random 195 mg/dL (60-115); Magnesium 1.9 mg/dL (1.6-2.6); Sodium 141 mmol/L (135-145); Total Protein 6.7 g/dL (6.5-8.0)
[2022-06-02] MEDS: Atorvastatin Calcium 40 MG TABLET PO (08:51)
[2022-06-02] MEDS: Omeprazole 20 MG CAPSULE.DR PO (08:51)
[2022-06-02] MEDS: Escitalopram Oxalate 10 MG TABLET PO (08:51)
[2022-06-02] MEDS: Azithromycin 250 MG TABLET PO (08:52)
[2022-06-02 13:16] VITALS: TEMP 36.8
--- NOTE | 2022-06-02 14:09 | MHC.CM.ED ---
Pt is not going to be admitted per MD: efforts will focus on STR placement. Pt has been accepted to [facility] pending [facility] auth. Ongoing correspondence with [facility] Liaison this weekend: [facility] not available for auth. [facility] will pursue on Friday in anticipation of pt transfer. Pt aware of plan. CM to follow
[2022-06-02 14:19] VITALS: BP 117/85; PULSE 89; RESP 15; TEMP 36.8; O2SAT 95
--- NOTE | 2022-06-02 19:23 | PC.NURSE ---
PATIENT WAS INC OF URINE ,CARE GIVEN ,PATIENT WAS A 1:1 FEED ATE 25 % OF SUPPER AND DRANK 240 ML OF MILK
--- NOTE | 2022-06-02 21:55 | PC.NURSE ---
Patient resting comfortable, no needs at this time. Patient being monitored with a camera due to dementia and multiple attempts to get out of bed.
[2022-06-02 22:46] VITALS: BP 148/58; PULSE 94; RESP 16; TEMP 37.6; O2SAT 95
[2022-06-02 23:07] VITALS: BP 148/58; PULSE 103; RESP 18; TEMP 37.1; O2SAT 98
[2022-06-02] MEDS: Melatonin 3 MG TABLET 9 MG PO (23:08)
--- NOTE | 2022-06-03 00:11 | PC.NURSE ---
Patient incontinent of urine, RN changed bedding and cleaned patient.
--- NOTE | 2022-06-03 05:31 | PC.NURSE ---
Checked with provider, repeat urine not needed at this time.
--- NOTE | 2022-06-03 05:31 | PC.NURSE ---
Patient in bed with camera monitoring. Patient talks to self and fidgets in bed. Refusing to be dressed at this time. NAD.
[2022-06-03 06:28] VITALS: BP 132/75; PULSE 99; RESP 18; TEMP 36.9; O2SAT 96
[2022-06-03] MEDS: Omeprazole 20 MG CAPSULE.DR PO (06:31)
--- NOTE | 2022-06-03 09:12 | MHC.CM.PN ---
PT AWAITING SNF PLACEMENT FAMILY ACCEPTING BED OFFER [facility] NOW WAITING FOR INSURANCE AUTH PT WILL NEED BLS TRANSPORT
[2022-06-03] MEDS: polyethylene glycoL 3350 17 GM POWD.PACK PO (09:17)
[2022-06-03] MEDS: Atorvastatin Calcium 40 MG TABLET PO (09:17)
[2022-06-03] MEDS: Escitalopram Oxalate 10 MG TABLET PO (09:17)
--- NOTE | 2022-06-03 11:34 | PC.NURSE ---
Pt family member at bedside. Gave them update on plan of care
[2022-06-03 16:12] VITALS: BP 117/72; PULSE 102; RESP 16; TEMP 37.1; O2SAT 98
--- NOTE | 2022-06-03 17:48 | MHC.CM.ED ---
Continuing to wait for auth since 05/30 at 1355. Multiple CM to reached out to liasion at [facility] . Email sent to Ayde Dee. CM spoke with regarding lack of insurance authorization. tells CM she has funds to pay for about 2 months and has met with her tax attorney today regarding process to sell her condo in [place] to pay for LTC. CM to follow for d/c needs.
[2022-06-03] MEDS: Melatonin 3 MG TABLET 9 MG PO (21:00)
--- NOTE | 2022-06-03 21:20 | PC.NURSE ---
pt dependent for feeding, given pudding, jello, and water. compliant with medication administration. no c/o pain or discomfort
[2022-06-03 21:39] VITALS: BP 132/63; PULSE 95; RESP 95; TEMP 36.7; O2SAT 98
[2022-06-04 01:27] VITALS: BP 135/65; PULSE 89; RESP 15; O2SAT 94
[2022-06-04] MEDS: Omeprazole 20 MG CAPSULE.DR PO (06:29)
[2022-06-04 06:36] VITALS: PULSE 91; RESP 16; O2SAT 96
--- NOTE | 2022-06-04 06:36 | PC.NURSE ---
pt incontinent of urine. pt given incontinent care, able to roll side to side with assist
[2022-06-04 08:19] VITALS: BP 133/73; PULSE 104; RESP 14; TEMP 36.4; O2SAT 94
[2022-06-04] MEDS: polyethylene glycoL 3350 17 GM POWD.PACK PO (08:20)
--- NOTE | 2022-06-04 10:33 | PC.NURSE ---
cm reports if no insurance verification today ? or home. will reassess later today.
[2022-06-04 11:53] VITALS: BP 127/67; PULSE 92; RESP 16; O2SAT 95
--- NOTE | 2022-06-04 13:28 | PC.NURSE ---
cm attempted to make contact with [facility] yet again today. no answer so far. no longer at bedside.
--- NOTE | 2022-06-04 13:38 | MHC.CM.ED ---
Addendum entered by Jess Maciel 06/04/22 13:58: [facility] CONFIRMED THAT CASE IS BEING REVIEWED AND THEY EXPECT A RESPONSE SHORTLY Original Note: (KATE, IN ROOM) TELLS THIS [employer] LENS GENERATOR THAT SHE CONTACTED [facility] AND WAS TOLD THAT THEY HAVE GIVEN AUTHORIZATION FOR [facility] TO ADMIT. LIAISON FACILITY NOTIFIED OF CONVERSATION AND IS LOOKING INTO THIS NOW. THEN STATES THAT SHE NO LONGER WANTS [facility] AND IT WAS EXPLAINED THAT THEY HAVE BEEN WORKING WITH THE INSURANCE COMPANY, THAT THE WANTED THIS FACILITY ( SHE KNOWS WHERE IT IS AND SHE ONCE LIVED NEAR IT) REPORTS NOT RECALLING ANY OF THIS CONVERSATION CASE MANAGEMENT EXPLAINED THAT PATIENT CAN RETURN HOME WITH SERVICES IF SHE PREFER WELL OPTION OF TRANSFERRING FROM FACILITY IF SHE DECIDES IT IS NOT THE CARE SHE WANTS CHOOSES TO ACCEPT [facility] OFFER ONCE THEY VERIFY AUTH TO ADMIT.
[2022-06-04 14:00] VITALS: BP 130/69; PULSE 102; RESP 14; TEMP 36.8; O2SAT 98
[2022-06-04 15:40] LABS: COVID-19 Test Negative (Negative)
--- NOTE | 2022-06-04 16:04 | MHC.CM.ED ---
[facility] HAS AUTHORIZATION TO [facility]MIT [facility], RN, AND UNIT AWARE (IN ROOM) ALSO AWARE AND WILL DRIVE BY THE FACILITY TONIGHT TO SIGN HIM IN. AND [facility] STAFF AWARE THAT TRANSPORT MAY NOT BE POSSIBLE UNTIL TOMORROW MORNING. CASE MANAGEMENT TO FOLLOW UP IF THIS IS THE PLAN
--- NOTE | 2022-06-04 17:19 | MHC.CM.ED ---
BLS transport at this time is not until 8pm. [facility] is willing to accept pt in the morning. [facility] is aware that pt will transport at 9 am tomorrow morning and that his will be there between 9:30 and 10 am to sign him in and bring in his clothes. Encouraged to meet with social and human services assistant at facility regarding LTC arrangements. BLS Transport booked for 9 am. Fatoumata BENOIT aware and agreeable. Yael SUN aware. CM concerned about transferring pt to SNF at night, as pt . agrees that pt is more cooperative and aware in the morning. Med eleno and ED worksheet in the chart. CM to follow for d/c needs.
[2022-06-04] MEDS: Melatonin 3 MG TABLET 9 MG PO (20:15)
[2022-06-04 23:53] VITALS: BP 148/72; PULSE 94; O2SAT 97
[2022-06-05 05:51] VITALS: BP 137/76; PULSE 104; O2SAT 97
--- NOTE | 2022-06-05 05:58 | PC.NURSE ---
Patient has been awake, but calm/cooperative throughout the shift. Occasionally asking if he can get into his car. Plan is for the patient to be transferred to [facility] for further care today around 9am. Camera 'sitter' remains in place. Pt has blankets nearby but does not want them at this time. Medicated per MD orders. Will continue to monitor.
[2022-06-05] MEDS: Omeprazole 20 MG CAPSULE.DR PO (06:55)
== END 2022-06-05 08:44 | disposition skilled nursing facility (03) ==
PROVIDERS: Physician Assistant; Physician Assistant Medical; Emergency Provider Emergency Medicine
DX: K80.20 Calculus of gallbladder without cholecystitis without obstruction (principal); J18.9 Pneumonia, unspecified organism; D72.829 Elevated white blood cell count, unspecified; Z20.822 Contact with and (suspected) exposure to COVID-19; R10.9 Unspecified abdominal pain; I10 Essential (primary) hypertension; E78.5 Hyperlipidemia, unspecified; F03.90 Unspecified dementia, unspecified severity, without behavioral disturbance, psychotic disturbance, mood disturbance, and anxiety; I48.0 Paroxysmal atrial fibrillation; Z79.01 Long term (current) use of anticoagulants
CPT/HCPCS: 36415; 71045; 71046; 74176; 76705; 80048; 80076; 81003; 83605; 83690; 83735; 84484; 85025; 87040; 87635; 93005; 96365; 96366; 96367; 96372; 97162; 99285; J0456; J0696

== ENCOUNTER 2022-06-18 13:54 | Emergency (ER) | payer OTHER, SELFPAY ==
--- NOTE | ~2022-06-18 | XR_ITS ---
EXAMINATION: XR CHEST CLINICAL INFORMATION: Dyspnea. COMPARISON: 06/02/2022 chest radiographs TECHNIQUE: Frontal view of the chest was obtained. FINDINGS: No significant abnormality is noted involving the heart, lungs, mediastinum, bony thorax or soft tissues. XR/XR chest 1V IMPRESSION: No acute cardiopulmonary process.
--- NOTE | ~2022-06-18 | CT_ITS ---
EXAMINATION: CT ABDOMEN AND PELVIS WITHOUT CONTRAST CLINICAL INFORMATION: Abdominal distention and constipation COMPARISON: Previous abdominal ultrasound and CT of the abdomen and pelvis May 2022 TECHNIQUE: Multidetector volumetric imaging was performed from the superior aspect of the liver through the pubic symphysis. Sagittal and coronal reformatted images were obtained on the technologist's workstation. This CT examination was performed using dose optimization techniques as appropriate, variously including the following: *Automated exposure control *Adjustment of mA and/or kV according to patient size (this includes techniques or standardized protocols for targeted exams where dose is matched to indication/reason for exam; i.e. extremities or head) *Use of iterative reconstruction technique DLP: 363 mGy-cm FINDINGS: LUNG BASES: The visualized lung bases are unremarkable. LIVER, GALLBLADDER, AND BILIARY TREE: Small stable calcification liver. Small gallstones.No focal liver lesion or biliary duct dilatation. PANCREAS: Unremarkable. SPLEEN: Unremarkable. ADRENAL GLANDS: Unremarkable. KIDNEYS AND URETERS: 4 cm cyst in the lower pole of the right kidney. The kidneys are otherwise unremarkable. No imaging follow-up needed. BLADDER: There is high attenuation seen dependently along the posterior bladder wall, right greater than left. This is a new finding from May 2022 exam. It is uncertain whether this could be related to excreted contrast. Bladder stone or mass cannot be excluded with certainty. GASTROINTESTINAL TRACT: There is stool throughout the colon suggestive of constipation. There is diverticulosis of the colon. No evidence of diverticulitis is seen. Small and large bowel is otherwise normal. The appendix is normal. The stomach is normal. ABDOMINAL WALL: There is an umbilical hernia containing fat. LYMPH NODES: Normal. VASCULAR: There is evidence of atherosclerotic disease. PELVIC VISCERA: Unremarkable. OSSEOUS STRUCTURES: There are degenerative changes of the spine. CT/CT abdomen pelvis wo IV con IMPRESSION: Severe constipation. Diverticulosis. No evidence of diverticulitis. Gallstones. Right renal cyst. New dependent increased attenuation in the gallbladder, question representing excreted contrast. Differential small bladder stones or mass. This is a new finding from 05/29/2022 exam. Fleischner guidelines were followed.
[2022-06-18 14:05] VITALS: BP 119/66; BP 120/72; PULSE 118; RESP 16; TEMP 37.1; O2SAT 95; O2SAT 97; BMI 22.6
--- NOTE | 2022-06-18 14:14 | ECG_ITS ---
Test Reason : EKG ABNORMALITY Blood Pressure : / mmHG Vent. Rate : 127 BPM Atrial Rate : 000 BPM P-R Int : 000 ms QRS Dur : 086 ms QT Int : 322 ms P-R-T Axes : 000 009 052 degrees QTc Int : 467 ms Atrial fibrillation with rapid ventricular response Abnormal ECG When compared with ECG of 29-MAY-2022 03:41, No significant change was found Referred By: Cleopatra Chao Electronically Signed By:PRASANNA SILVA
--- NOTE | 2022-06-18 14:16 | PC.NURSE ---
call to [facility]: pt pointing to RLQ stomach, concerned of pain, VSS and SaO2 88% and pt was shaking. received Tylenol. medical problems: dementia, health care proxy invoked
--- NOTE | 2022-06-18 14:17 | ED.GENADULT ---
HPI - General Adult General Chief complaint: General Medical Stated complaint: RLQ PAIN PER EMS Time Seen by Provider: 06/18/22 14:13 Source: patient and EMS Mode of arrival: EMS Limitations: altered mental status (cognitive impairment) History of Present Illness HPI narrative: 86 yo male with hx of HLD, afib, dementia from SNF reportedly had some abdominal pain which he verbalized so family wanted him evaluated. He now denies any complaints. MD complaint: pointed to stomach at SNF and wanted him looked at for abdominal pain Onset (ago): hour(s) (1) Radiation: abdomen Severity: mild Quality: other (verbalized pain to staff but staff told RN they were not able to get a full history ) Pain Consistency: now resolved Relieving factors: none Exacerbating factors: none Associated symptoms: denies other symptoms Treatments prior to arrival: none Related Data Home Medications Medication Instructions Recorded Confirmed escitalopram oxalate 10 mg tablet 10 mg PO DAILY 05/30/22 05/30/22 esomeprazole magnesium 40 mg 40 mg PO DAILY 05/30/22 05/30/22 capsule,delayed release melatonin 10 mg capsule 10 mg QPM 05/30/22 05/30/22 rosuvastatin 10 mg tablet 10 mg PO DAILY 05/30/22 05/30/22 Previous Rx's Medication Instructions Recorded polyethylene glycol 3350 17 17 g PO DAILY #119 grams 04/13/21 gram/dose oral powder (Miralax) azithromycin 250 mg tablet 250 mg PO DAILY 4 days #4 tabs 05/29/22 cefuroxime axetil 500 mg tablet 500 mg PO BID 7 days #14 tabs 05/29/22 Allergies Allergy/AdvReac Type Severity Reaction Status Date / Time No Known Allergies Allergy Verified 04/12/21 20:51 Review of Systems Review of Systems: ROS unable to be obtained due to dementia [facility] Past Medical History Source: old records reviewed Medical History Afib Anxiety Dementia HTN (hypertension) Hyperlipidemia Social History Social History (Updated 05/29/22 @ 03:55 by Cleopatra Chao DO) Patient Tobacco Use Status: Never used Tobacco Use of substances other than those prescribed or required for medical reasons: No Advance Directives: No Advance Directives Information Provided: Yes Physical Exam ED Vital Signs: Vital Signs - 24 hr 06/18/22 14:05 06/18/22 15:50 Temperature 98.7 F 98.3 F Pulse Rate 118 H 120 H Respiratory Rate 16 17 Blood Pressure 119/66 129/69 Pulse Oximetry 97 95 Oxygen Delivery Method Room Air BMI result Body Mass Index 22.6 Appearance: Alert. Confused. No acute distress. Eyes: Pupils equal, round and reactive to light. ENT: Pharynx normal. Neck: Normal inspection. Neck supple. CVS: irregular and tachycardic heart rate and rhythm. Pulses normal. Respiratory: No respiratory distress. Breath sounds normal. Abdomen: Soft and nontender. but slight distention Skin: Skin warm and dry. Normal skin color. Normal skin turgor. Extremities: No lower extremity edema. No calf ttp Neuro: Confused No motor deficit. No sensory deficit. Course Course Course Narrative: 2.5mg lopressor for afib with RVR - hx of afib signed out to Dr. Vogt pending further workup Medical Decision Making MDM Narrative Medical decision making narrative: 86 yo male with hx of dementia, afib was on eliquis but I do not see it on his SNF med recc reportedly had abdominal pain at SNF today he has no pain now but he does have tachycardic irregular HR in afib - at this time labs, CXR, UA, CT scan for obstruction/constipation ordered. Dispo per results and findings. Lab Data Result diagrams: 06/18/22 16:28 06/18/22 16:28 Labs: Lab Results 06/18/22 06/18/22 06/18/22 Range/Units 16:28 16:28 16:28 WBC 8.2 (4.8-10.8) X10*3/uL RBC 3.05 L (4.60-5.80) X10*6/uL Hgb 9.3 L (14.0-18.0) g/dl Hct 28.9 L (42.0-52.0) % MCV 94.8 (80.0-98.0) fL MCH 30.5 (27.0-33.0) pg MCHC 32.2 (31.0-36.0) g/dl RDW 17.3 H (11.0-16.0) % Plt Count 347 (160-400) X10*3/uL MPV 9.8 (9.4-12.4) fL Immature Gran % (Auto) 0.8 H (0.0-0.4) % Neut % (Auto) 77.4 H (45-73) % Lymph % (Auto) 12.1 L (20-40) % [place] % (Auto) 8.0 (2-11) % Eos % (Auto) 1.6 (0-4) % Baso % (Auto) 0.1 (0-2) % Lymph # (Auto) 1.0 L (1.2-4.9) X10*3/uL [place] # (Auto) 0.7 (0.1-1.2) X10*3/uL Eos # (Auto) 0.1 (0.0-0.4) X10*3/uL Baso # (Auto) 0.0 (0.0-0.2) X10*3/uL Abs Immat Gran (auto) 0.07 H (0.00-0.03) X10*3/uL Absolute Neuts (auto) 6.4 (2.0-8.3) x10*3/uL Absolute Nucleated RBC 0.000 (0.0-0.012) X10*3/uL Nucleated RBC % (auto) 0.0 (0.0-0.2) /100WBC PT 14.3 H (10.0-13.1) SEC INR 1.2 H (0.9-1.1) VBG pH (7.32-7.43) VBG pCO2 mmHg VBG pO2 mmHg VBG HCO3 (22-26) mmol/L VBG O2 Saturation % VBG Base Excess mmol/L COVID-19 (IMTIAZ) Positive A (Negative) COVID-19 Clin Com See Note 06/18/22 Range/Units 16:39 WBC (4.8-10.8) X10*3/uL RBC (4.60-5.80) X10*6/uL Hgb (14.0-18.0) g/dl Hct (42.0-52.0) % MCV (80.0-98.0) fL MCH (27.0-33.0) pg MCHC (31.0-36.0) g/dl RDW (11.0-16.0) % Plt Count (160-400) X10*3/uL MPV (9.4-12.4) fL Immature Gran % (Auto) (0.0-0.4) % Neut % (Auto) (45-73) % Lymph % (Auto) (20-40) % [place] % (Auto) (2-11) % Eos % (Auto) (0-4) % Baso % (Auto) (0-2) % Lymph # (Auto) (1.2-4.9) X10*3/uL [place] # (Auto) (0.1-1.2) X10*3/uL Eos # (Auto) (0.0-0.4) X10*3/uL Baso # (Auto) (0.0-0.2) X10*3/uL Abs Immat Gran (auto) (0.00-0.03) X10*3/uL Absolute Neuts (auto) (2.0-8.3) x10*3/uL Absolute Nucleated RBC (0.0-0.012) X10*3/uL Nucleated RBC % (auto) (0.0-0.2) /100WBC PT (10.0-13.1) SEC INR (0.9-1.1) VBG pH 7.51 H (7.32-7.43) VBG pCO2 31 mmHg VBG pO2 157 mmHg VBG HCO3 25 (22-26) mmol/L VBG O2 Saturation 99.0 % VBG Base Excess 3.0 mmol/L COVID-19 (IMTIAZ) (Negative) COVID-19 Clin Com ECG Data Attestation: I personally reviewed and interpreted this ECG as follows: Interpretation: Rate: 127 Rhythm: afib with RVR [place]: normal Normal QRS complex. ST T wave : no ROSELINE, nonspecific qTC: normal prior studies: hx of afib no acute ischemia The study has been interpreted contemporaneously by me. . Discharge Plan Discharge Clinical Impression: Atrial fibrillation with rapid ventricular response, Constipation, COVID-19 Patient Disposition: Still a Patient Instructions: A-fib (Atrial Fibrillation) (ED), Constipation (ED) Prescriptions: No [facility] polyethylene glycol 3350 [Miralax] 17 gram/dose powder 17 g PO DAILY Qty: 119 0RF cefuroxime axetil 500 mg tablet 500 mg PO BID 7 Days Qty: 14 0RF azithromycin 250 mg tablet 250 mg PO DAILY 4 Days Qty: 4 0RF Rx Instructions: start on day 2 of therapy esomeprazole magnesium 40 mg Capsule,Delayed Release(Dr/Ec) 40 mg PO DAILY escitalopram oxalate 10 mg Tablet 10 mg PO DAILY rosuvastatin 10 mg Tablet 10 mg PO DAILY melatonin 10 mg Capsule 10 mg QPM
[2022-06-18 15:50] VITALS: BP 129/69; PULSE 120; RESP 17; TEMP 36.8; O2SAT 95
[2022-06-18] MEDS: Metoprolol Tartrate 5 MG/5 ML VIAL 2.5 MG IVPUSH (16:30)
[2022-06-18 16:34] LABS: MANUAL DIFF FLAG NO
[2022-06-18 16:43] LABS: Basophils Percent Auto 0.1 % (0-2); Eosinophils Absolute Auto 0.1 X10*3/uL (0.0-0.4); Eosinophils Percent Auto 1.6 % (0-4); Hematocrit 28.9 % (42.0-52.0); Hemoglobin 9.3 g/dl (14.0-18.0); Imm Gran Abs Auto 0.07 X10*3/uL (0.00-0.03); Imm Gran Pct Auto 0.8 % (0.0-0.4); Lymphocytes Percent Auto 12.1 % (20-40); Mean Corpuscular HGB Conc 32.2 g/dl (31.0-36.0); Mean Corpuscular Hemoglobin 30.5 pg (27.0-33.0); Mean Corpuscular Volume 94.8 fL (80.0-98.0); Mean Platelet Volume 9.8 fL (9.4-12.4); Monocytes Absolute Auto 0.7 X10*3/uL (0.1-1.2); Neutrophils Absolute Auto 6.4 x10*3/uL (2.0-8.3); Neutrophils Percent Auto 77.4 % (45-73); Platelet Count 347 X10*3/uL (160-400); Red Blood Count 3.05 X10*6/uL (4.60-5.80); Red Cell Distribution Width 17.3 % (11.0-16.0); White Blood Count 8.2 X10*3/uL (4.8-10.8)
[2022-06-18 16:43] LABS: VBG HCO3 25 mmol/L (22-26); VBG pCO2 31 mmHg; VBG pH 7.51 (7.32-7.43); VBG pO2 157 mmHg
[2022-06-18 16:47] LABS: INTERNATIONAL NORM RATIO 1.2 (0.9-1.1); Prothrombin Time 14.3 SEC (10.0-13.1)
[2022-06-18 16:50] LABS: COVID-19 Test Positive (Negative)
[2022-06-18 16:53] LABS: Venous Blood Gas Refer to POC result
[2022-06-18 16:59] LABS: Lactic Acid 0.9 mmol/L (0.5-2.0)
[2022-06-18] MEDS: Sodium Phosphate,Mono-Dibasic 133 ML ENEMA PR (17:02)
[2022-06-18] MEDS: Acetaminophen Oral Liquid 650 MG/20.3 ML SOLUTION PO (17:02)
[2022-06-18] MEDS: Lactulose 20 GM/30 ML SOLUTION PO (17:02)
[2022-06-18 17:05] LABS: Alanine Aminotransferase 9 U/L (0-40); Albumin Level 2.9 g/dL (3.5-5.0); Alkaline Phosphatase 67 U/L (39-117); Anion Gap 16 (12-20); Aspartate Amino Transferase 13 U/L (5-37); Bilirubin Direct 0.3 mg/dL (0.0-0.5); Bilirubin Total 0.8 mg/dL (0.0-1.0); Blood Urea Nitrogen 30 mg/dL (9-16); Calcium 8.7 mg/dL (8.4-10.2); Carbon Dioxide 25 mmol/L (22-29); Chloride 105 mmol/L (96-108); Creatinine Clr Calc Pharmacy 69.7; Estimated Glomerular Filt Rate > 60; Glucose Random 120 mg/dL (60-115); Lipase 37 U/L (8-78); Magnesium 1.6 mg/dL (1.6-2.6); Potassium 3.9 mmol/L (3.3-5.1); Sodium 142 mmol/L (135-145); Total Protein 6.5 g/dL (6.5-8.0)
[2022-06-18 17:11] LABS: Troponin-I High Sensitivity 8.3 ng/L (<3.5-35.0)
[2022-06-18 17:19] LABS: Procalcitonin 0.08 ng/mL
--- NOTE | 2022-06-18 17:32 | PC.NURSE ---
Pt test came back positive for COVID, pts in room. This nurse spoke to pts , letting her know that he has covid and cannot have visitors for the time being. Pts agreeable and understanding. This nurse encouraged her to call for updates and to talk with pt anytime. Fleet enema administered, pt tolerated well, no discomfort or pain stated. Vital signs within normal limits. No stool return. No stool/blockage felt when administering enema. Lactulose also administered, will reassess for stool movement.
--- NOTE | 2022-06-18 17:34 | ED.GENADULT ---
HPI - General Adult General Chief complaint: General Medical Stated complaint: RLQ PAIN PER EMS Time Seen by Provider: 06/18/22 14:13 Source: patient and EMS Mode of arrival: EMS Limitations: altered mental status (cognitive impairment) History of Present Illness Quality: other (verbalized pain to staff but staff told RN they were not able to get a full history ) Relieving factors: none Exacerbating factors: none Associated symptoms: denies other symptoms Treatments prior to arrival: none Related Data Home Medications Medication Instructions Recorded Confirmed escitalopram oxalate 10 mg tablet 10 mg PO DAILY 05/30/22 05/30/22 esomeprazole magnesium 40 mg 40 mg PO DAILY 05/30/22 05/30/22 capsule,delayed release melatonin 10 mg capsule 10 mg QPM 05/30/22 05/30/22 rosuvastatin 10 mg tablet 10 mg PO DAILY 05/30/22 05/30/22 Previous Rx's Medication Instructions Recorded polyethylene glycol 3350 17 17 g PO DAILY #119 grams 04/13/21 gram/dose oral powder (Miralax) azithromycin 250 mg tablet 250 mg PO DAILY 4 days #4 tabs 05/29/22 cefuroxime axetil 500 mg tablet 500 mg PO BID 7 days #14 tabs 05/29/22 apixaban 2.5 mg tablet (Eliquis) 2.5 mg PO BID #60 tabs 06/18/22 metoprolol tartrate 25 mg tablet 25 mg PO BID #60 tabs 06/18/22 polyethylene glycol 3350 17 17 g PO DAILY #510 grams 06/18/22 gram/dose oral powder (Miralax) Allergies Allergy/AdvReac Type Severity Reaction Status Date / Time No Known Allergies Allergy Verified 04/12/21 20:51 [facility] Past Medical History Medical History Afib Anxiety Dementia HTN (hypertension) Hyperlipidemia Social History Social History (Updated 05/29/22 @ 03:55 by Cleopatra Chao DO) Patient Tobacco Use Status: Never used Tobacco Use of substances other than those prescribed or required for medical reasons: No Advance Directives: No Advance Directives Information Provided: Yes Physical Exam ED Vital Signs: Vital Signs - 24 hr 06/18/22 14:05 06/18/22 15:50 06/18/22 17:47 Temperature 98.7 F 98.3 F 98.3 F Pulse Rate 118 H 120 H 120 H Respiratory Rate 16 17 18 Blood Pressure 119/66 129/69 112/53 L Pulse Oximetry 97 95 96 Oxygen Delivery Method Room Air Room Air 06/18/22 18:29 06/18/22 19:55 Temperature 98.2 F Pulse Rate 107 H 108 H Respiratory Rate 17 Blood Pressure 120/61 120/66 Pulse Oximetry 97 Oxygen Delivery Method Room Air BMI result Body Mass Index 22.6 Medical Decision Making Lab Data Result diagrams: 06/18/22 16:28 06/18/22 16:28 Labs: Lab Results 06/18/22 06/18/22 06/18/22 Range/Units 16:28 16:28 16:28 WBC 8.2 (4.8-10.8) X10*3/uL RBC 3.05 L (4.60-5.80) X10*6/uL Hgb 9.3 L (14.0-18.0) g/dl Hct 28.9 L (42.0-52.0) % MCV 94.8 (80.0-98.0) fL MCH 30.5 (27.0-33.0) pg MCHC 32.2 (31.0-36.0) g/dl RDW 17.3 H (11.0-16.0) % Plt Count 347 (160-400) X10*3/uL MPV 9.8 (9.4-12.4) fL Immature Gran % (Auto) 0.8 H (0.0-0.4) % Neut % (Auto) 77.4 H (45-73) % Lymph % (Auto) 12.1 L (20-40) % Jerome % (Auto) 8.0 (2-11) % Eos % (Auto) 1.6 (0-4) % Baso % (Auto) 0.1 (0-2) % Lymph # (Auto) 1.0 L (1.2-4.9) X10*3/uL Jerome # (Auto) 0.7 (0.1-1.2) X10*3/uL Eos # (Auto) 0.1 (0.0-0.4) X10*3/uL Baso # (Auto) 0.0 (0.0-0.2) X10*3/uL Abs Immat Gran (auto) 0.07 H (0.00-0.03) X10*3/uL Absolute Neuts (auto) 6.4 (2.0-8.3) x10*3/uL Absolute Nucleated RBC 0.000 (0.0-0.012) X10*3/uL Nucleated RBC % (auto) 0.0 (0.0-0.2) /100WBC PT (10.0-13.1) SEC INR (0.9-1.1) VBG pH (7.32-7.43) VBG pCO2 mmHg VBG pO2 mmHg VBG HCO3 (22-26) mmol/L VBG O2 Saturation % VBG Base Excess mmol/L Sodium 142 (135-145) mmol/L Potassium 3.9 (3.3-5.1) mmol/L Chloride 105 (96-108) mmol/L Carbon Dioxide 25 (22-29) mmol/L Anion Gap 16 (12-20) BUN 30 H (9-16) mg/dL Creatinine 0.77 (0.5-1.4) mg/dL Estim Creat Clear Calc 69.7 Estimated GFR > 60 Random Glucose 120 H D (60-115) mg/dL Lactic Acid (0.5-2.0) mmol/L Calcium 8.7 (8.4-10.2) mg/dL Magnesium 1.6 (1.6-2.6) mg/dL Total Bilirubin 0.8 (0.0-1.0) mg/dL Direct Bilirubin 0.3 (0.0-0.5) mg/dL AST 13 (5-37) U/L ALT 9 (0-40) U/L Alkaline Phosphatase 67 (39-117) U/L Troponin I High Sens (<3.5-35.0) ng/L Total Protein 6.5 (6.5-8.0) g/dL Albumin 2.9 L (3.5-5.0) g/dL Lipase 37 (8-78) U/L Procalcitonin ng/mL COVID-19 ([facility]) Positive A (Negative) COVID-19 Clin Com See Note 06/18/22 06/18/22 06/18/22 Range/Units 16:28 16:28 16:28 WBC (4.8-10.8) X10*3/uL RBC (4.60-5.80) X10*6/uL Hgb (14.0-18.0) g/dl Hct (42.0-52.0) % MCV (80.0-98.0) fL MCH (27.0-33.0) pg MCHC (31.0-36.0) g/dl RDW (11.0-16.0) % Plt Count (160-400) X10*3/uL MPV (9.4-12.4) fL Immature Gran % (Auto) (0.0-0.4) % Neut % (Auto) (45-73) % Lymph % (Auto) (20-40) % Jerome % (Auto) (2-11) % Eos % (Auto) (0-4) % Baso % (Auto) (0-2) % Lymph # (Auto) (1.2-4.9) X10*3/uL Jerome # (Auto) (0.1-1.2) X10*3/uL Eos # (Auto) (0.0-0.4) X10*3/uL Baso # (Auto) (0.0-0.2) X10*3/uL Abs Immat Gran (auto) (0.00-0.03) X10*3/uL Absolute Neuts (auto) (2.0-8.3) x10*3/uL Absolute Nucleated RBC (0.0-0.012) X10*3/uL Nucleated RBC % (auto) (0.0-0.2) /100WBC PT 14.3 H (10.0-13.1) SEC INR 1.2 H (0.9-1.1) VBG pH (7.32-7.43) VBG pCO2 mmHg VBG pO2 mmHg VBG HCO3 (22-26) mmol/L VBG O2 Saturation % VBG Base Excess mmol/L Sodium (135-145) mmol/L Potassium (3.3-5.1) mmol/L Chloride (96-108) mmol/L Carbon Dioxide (22-29) mmol/L Anion Gap (12-20) BUN (9-16) mg/dL Creatinine (0.5-1.4) mg/dL Estim Creat Clear Calc Estimated GFR Random Glucose (60-115) mg/dL Lactic Acid 0.9 (0.5-2.0) mmol/L Calcium (8.4-10.2) mg/dL Magnesium (1.6-2.6) mg/dL Total Bilirubin (0.0-1.0) mg/dL Direct Bilirubin (0.0-0.5) mg/dL AST (5-37) U/L ALT (0-40) U/L Alkaline Phosphatase (39-117) U/L Troponin I High Sens 8.3 D (<3.5-35.0) ng/L Total Protein (6.5-8.0) g/dL Albumin (3.5-5.0) g/dL Lipase (8-78) U/L Procalcitonin ng/mL COVID-19 ([facility]) (Negative) COVID-19 Clin Com 06/18/22 06/18/22 Range/Units 16:28 16:39 WBC (4.8-10.8) X10*3/uL RBC (4.60-5.80) X10*6/uL Hgb (14.0-18.0) g/dl Hct (42.0-52.0) % MCV (80.0-98.0) fL MCH (27.0-33.0) pg MCHC (31.0-36.0) g/dl RDW (11.0-16.0) % Plt Count (160-400) X10*3/uL MPV (9.4-12.4) fL Immature Gran % (Auto) (0.0-0.4) % Neut % (Auto) (45-73) % Lymph % (Auto) (20-40) % Jerome % (Auto) (2-11) % Eos % (Auto) (0-4) % Baso % (Auto) (0-2) % Lymph # (Auto) (1.2-4.9) X10*3/uL Jerome # (Auto) (0.1-1.2) X10*3/uL Eos # (Auto) (0.0-0.4) X10*3/uL Baso # (Auto) (0.0-0.2) X10*3/uL Abs Immat Gran (auto) (0.00-0.03) X10*3/uL Absolute Neuts (auto) (2.0-8.3) x10*3/uL Absolute Nucleated RBC (0.0-0.012) X10*3/uL Nucleated RBC % (auto) (0.0-0.2) /100WBC PT (10.0-13.1) SEC INR (0.9-1.1) VBG pH 7.51 H (7.32-7.43) VBG pCO2 31 mmHg VBG pO2 157 mmHg VBG HCO3 25 (22-26) mmol/L VBG O2 Saturation 99.0 % VBG Base Excess 3.0 mmol/L Sodium (135-145) mmol/L Potassium (3.3-5.1) mmol/L Chloride (96-108) mmol/L Carbon Dioxide (22-29) mmol/L Anion Gap (12-20) BUN (9-16) mg/dL Creatinine (0.5-1.4) mg/dL Estim Creat Clear Calc Estimated GFR Random Glucose (60-115) mg/dL Lactic Acid (0.5-2.0) mmol/L Calcium (8.4-10.2) mg/dL Magnesium (1.6-2.6) mg/dL Total Bilirubin (0.0-1.0) mg/dL Direct Bilirubin (0.0-0.5) mg/dL AST (5-37) U/L ALT (0-40) U/L Alkaline Phosphatase (39-117) U/L Troponin I High Sens (<3.5-35.0) ng/L Total Protein (6.5-8.0) g/dL Albumin (3.5-5.0) g/dL Lipase (8-78) U/L Procalcitonin 0.08 ng/mL COVID-19 ([facility]) (Negative) COVID-19 Clin Com Discharge Plan Discharge Clinical Impression: Atrial fibrillation with rapid ventricular response, COVID-19 Constipation Qualifiers: Constipation type: unspecified constipation type Qualified Code(s): K59.00 - Constipation, unspecified Patient Disposition: Xfer [facility] Transfer Details: Patient is supposed to be on Eliquis 2.5 mg twice daily and metoprolol 25 mg twice daily per records Instructions: A-fib (Atrial Fibrillation) (ED), Constipation (ED), COVID-19 (Coronavirus Disease 2019) (ED) Additional Instructions: Start giving the medication as prescribed and follow up with PCP Continue stool softener social distancing Prescriptions: New Eliquis 2.5 mg tablet 2.5 mg PO BID Qty: 60 0RF metoprolol tartrate 25 mg tablet 25 mg PO BID Qty: 60 0RF polyethylene glycol 3350 [Miralax] 17 gram/dose powder 17 g PO DAILY Qty: 510 0RF No [facility] polyethylene glycol 3350 [Miralax] 17 gram/dose powder 17 g PO DAILY Qty: 119 0RF cefuroxime axetil 500 mg tablet 500 mg PO BID 7 Days Qty: 14 0RF azithromycin 250 mg tablet 250 mg PO DAILY 4 Days Qty: 4 0RF Rx Instructions: start on day 2 of therapy esomeprazole magnesium 40 mg Capsule,Delayed Release(Dr/Ec) 40 mg PO DAILY escitalopram oxalate 10 mg Tablet 10 mg PO DAILY rosuvastatin 10 mg Tablet 10 mg PO DAILY melatonin 10 mg Capsule 10 mg QPM
[2022-06-18 17:47] VITALS: BP 112/53; PULSE 120; RESP 18; TEMP 36.8; O2SAT 96
[2022-06-18] MEDS: Milk of Magnesia 30 ML ORAL.SUSP PO (18:28)
[2022-06-18 18:29] VITALS: BP 120/61; PULSE 107; RESP 17; TEMP 36.8; O2SAT 97
--- NOTE | 2022-06-18 18:56 | PC.NURSE ---
pt will be going back to [facility]. [facility] was called at 1844 per EMS there are 5 people awaiting transport but will call back with a time estimate
--- NOTE | 2022-06-18 19:37 | MHC.CM.ED ---
Addendum entered by Isi Roa 06/18/22 19:39: CM called and spoke with Albina, pt . Explained that pt will be discharged tonight to return to [facility]. questioning why he isn't admitted because he tested positive for Covid. Explained to that pt is asymptomatic and came into [facility] with constipation. Explained that pt has been vaccinated and that he has no symptoms of Covid. verbalizes understanding. Pt awaiting transport to facility. RN to call report. CM to follow for d/c planning. Original Note: PT d/c to return to [facility] per Dr. Satya Vogt. BLS booked by front office secretary. CM spoke with Dr. Hernadez about 's concerns about pt returning to [facility]. CM to call .
[2022-06-18] MEDS: Metoprolol Tartrate 25 MG TABLET PO (19:54)
[2022-06-18] MEDS: Apixaban 2.5 MG TABLET PO (19:54)
[2022-06-18 19:55] VITALS: BP 120/66; PULSE 108
--- NOTE | 2022-06-18 20:05 | PC.NURSE ---
call was placed to [facility] they stated the will be sending out a crew within 30 mins
--- NOTE | 2022-06-18 21:43 | PC.NURSE ---
Call was placed to [facility] to see an ETA for the pt at 2127. [facility] stated that they put the wrong brass pickler destination and the ambulance is in route now.
[2022-06-18 21:53] VITALS: PULSE 101
== END 2022-06-18 22:28 | disposition skilled nursing facility (03) ==
PROVIDERS: Emergency Medicine; Emergency Provider Internal Medicine
DX: U07.1 COVID-19 (principal); I48.20 Chronic atrial fibrillation, unspecified; K59.00 Constipation, unspecified; R00.0 Tachycardia, unspecified; I10 Essential (primary) hypertension; E78.5 Hyperlipidemia, unspecified; F03.90 Unspecified dementia, unspecified severity, without behavioral disturbance, psychotic disturbance, mood disturbance, and anxiety; Z79.02 Long term (current) use of antithrombotics/antiplatelets
CPT/HCPCS: 36415; 71045; 74176; 80048; 80076; 82803; 83605; 83690; 83735; 84145; 84484; 85025; 85610; 87040; 87635; 93005; 96374; 99285